=== PATIENT | male | born 1960 | race Caucasian/White ===

== ENCOUNTER → 2016-12-25 | Outpatient (CLI) | payer BC ==
[~2016-12-25] MED LIST: COZAAR100 MG PO; HYTRIN10 MG PO; K-DUR20 ME2 PO; METFORMIN PO; NORVASC10 MG PO; POTASSIUM PO; TENORETIC PO; ZYLOPRIM PO
== END | disposition home or self-care (01) ==
LOC: CECH 12:16
DX: R01.1 Cardiac murmur, unspecified (principal); I07.1 Rheumatic tricuspid insufficiency; I51.7 Cardiomegaly
CPT/HCPCS: 93306